=== PATIENT | female | born 1985 | race Hispanic/Latino ===

== ENCOUNTER 2017-07-23 08:57 | Day surgery (SDC) | payer BC, OTHER ==
[2017-07-21 18:33] VITALS: BMI 23.8
[2017-07-23 09:43] LABS: HEMATOCRIT 41.2 % (34.0-47.0); MEAN CELL VOLUME 87.8 fl (81.0-99.0); MEAN CORPUSCULAR HEMOGLOBIN 30.9 pg (27.0-31.0); MEAN CORPUSCULAR HGB CONC 35.2 g/dL (33.0-37.0); RED CELL DISTRIBUTION WIDTH 13.3 % (11.5-14.5); WHITE BLOOD COUNT 5.5 K/uL (4.8-10.8)
[2017-07-23] MEDS ORDERED: ePHEDrine 50 mg/ml Inj ONE (10:03)
[2017-07-23] MEDS ORDERED: Rocuronium 10 mg/ml (5 ml) ONE (10:03)
[2017-07-23] MEDS ORDERED: Propofol 10 mg/ml Inj (20 ML) ONE (10:03)
[2017-07-23] MEDS ORDERED: Lidocaine 4% (Laryng-O-Jet) Kit MM ONE (10:03)
[2017-07-23] MEDS ORDERED: Midazolam 2 MG/2 ML VIAL ONE (10:03)
[2017-07-23] MEDS ORDERED: Succinylcholine 200 mg/10 ml Inj IV ONE (10:03)
[2017-07-23] MEDS ORDERED: Bupivacaine 0.5% Inj(30mL) ONE (10:14)
[2017-07-23] MEDS ORDERED: ceFAZolin IV 1 gm in Dextrose 2 GM/100 ML BAG IVPB ONE (10:14)
[2017-07-23] MEDS ORDERED: Lactated Ringer's 1,000 ML IV ONE ×3 (10:35→14:30)
[2017-07-23] MEDS ORDERED: DiphenhydrAMINE 50 mg/ml Inj ONE (10:58)
[2017-07-23] MEDS ORDERED: Dexamethasone 4 mg/1 ml ONE (10:58)
[2017-07-23] MEDS ORDERED: Desflurane Inhalation Anesthetic Liq (240 ml) ONE (11:21)
[2017-07-23] MEDS ORDERED: Lactated Ringer's 1,000 ML IV SCH (12:45)
[2017-07-23] MEDS: HYDROmorphone 0.5 mg/0.5 ml ISec IVP PRN ×2 (13:05→13:50)
[2017-07-23] MEDS ORDERED: Oxycodone/Acetaminophen 5/325 mg Tab PO PRN (14:48)
[2017-07-23 15:13] VITALS: RESP 18
[2017-07-23] MEDS ORDERED: Oxycodone/Acetaminophen 5/325 mg Tab PO ONE (16:39)
[2017-07-23 17:32] VITALS: O2SAT 97
[2017-07-23 18:13] VITALS: BP 112/75; PULSE 84; TEMP 98
--- NOTE | 2017-08-03 10:21 | PCM.OP ---
Operative Report - Operative Report Date of Surgery/Procedure: 07/23/17 Time of Surgery/Procedure: 08:00 Surgeon: Dr. Mario Ladd Nurse Paralegal: Dr. Jay Karimi Anesthesia/Sedation: general/Dr. Jimenez Pre-Operative Diagnosis: endometriosis of the appednix Post-Operative Diagnosis: same Indication for Surgery: abdominal pain and endometriosis Operative Findings: as above Procedure/Operation Description: 1-Appendectomy. Brief History: This is a 32 year old woman who had already been brought to the operatong room by Dr. Sachi walters during the robotic proc edure noted endometriosis on the appnedix. Intraoperative general surgery consult was requested. Description of the Procedure: The patient had already been brought to the operating room by Dr. Felix (separate dictation). After taking control of the robot the appendix was retracted anteriorly and inferior and the mesentery was dissected with bliunt and sharp dissection. The appendiceal artery was dessicated and the appendix was freed to the base. With a double looped 3-0 PDS the appendix was ligated and then transected with electrocautrery. The specimen was marked and sent to pathology separately. Hemostasis was deemed adeqaute. The operatiojnn was then turned over to Dr. Karimi (separate dictation). Estimated Blood Loss: 5 cc Complications: none Discharge & Condition: stable
--- NOTE | 2017-08-04 18:04 | OP ---
PROCEDURE DATE: 07/23/2017 SURGEON: Jay Karimi MD VETERINARY PRACTITIONER: Mario Ladd MD ANESTHESIA ADMINISTERED BY: Annika Jimenez MD TYPE OF ANESTHESIA: General endotracheal anesthesia. PREOPERATIVE DIAGNOSES: Pelvic pain, dysmenorrhea, dyspareunia, bladder pain. POSTOPERATIVE DIAGNOSES: Pelvic pain, dysmenorrhea, dyspareunia, bladder pain, pelvic endometriosis of the pelvis and the appendix. PROCEDURES: Cystoscopy with bilateral ureteral catheterization and injection of dye; diagnostic hysteroscopy; dilatation and courettage, robotic laparoscopy, operative; excision of endometriosis; lysis of adhesions; bilateral ureterolysis and excision of rectal mass; to be dictated separately by Dr. Mario Ladd is appendectomy that he will dictate separately. ESTIMATED BLOOD LOSS: Minimal. COMPLICATIONS: None. SPECIMENS: Received is endometrial biopsy, appendix, colon, nodular endometriosis of left and right periureteral and posterior cervical endometriosis. INDICATION FOR THE PROCEDURE: This patient is a 32-year-old patient with an ongoing history of severe pelvic pain, who has had the surgery earlier this year confirming presence of endometriosis. The patient received no relief from the surgery and persisted with a severe pain. Further examination revealed presence of clinical signs of residual endometriosis. The patient was counseled with regard to risks and benefits of the surgery and with regard to the fact that the surgery may or may not solve her problem. She elected to proceed with the surgery and signed the consent. DESCRIPTION OF PROCEDURE: After adequate anesthesia was obtained, the patient was placed in dorsal lithotomy position. She was prepped and draped. The surgeons were gowned and gloved. At this point, attention was in the vaginal area where under direct visualization, a cystoscope was inserted into the bladder. A pancystoscopy was performed revealing evidence of no tumors, or areas of bleeding or any other lesion. The both ureteral ostia were in the appropriate anatomical position. Utilizing an open-ended stent, the left ureter was catheterized up to the distal ureter and 5 mL of IC-Green were then injected. Attention was then on the right ureter which was catheterized utilizing an open-ended stent all the way to the distal ureter and 5 mL of IC-Green were also injected. At this point, both stents were removed and ureteral openings appeared to be in normal condition. At this point, a Tamayo was replaced and attention was on the vaginal area where a speculum was placed in the vagina and the anterior lip of the cervix was grasped. The cervix was dilated and the hysteroscope was inserted into the uterine cavity. The cavity appeared to be normal. There was some area of erythema. For this reason and given the fact that the patient had been experiencing persistent bleeding, a D and C was performed. At this point, a uterine manipulator was placed in the uterus, attention was on the abdomen. After re-gowning and re-gloving, an open laparoscopy was performed in a standard fashion. Once the abdominal cavity was entered, the trocar cannula was inserted and under direct visualization, 3 additional trocars were inserted, right upper quadrant, left upper quadrant and left mid quadrant. The da Sammie Xi robot was then docked and the pelvis was visualized. The upper abdomen was visualized, appearing to have no evidence of implants on the peritoneal wall. The pelvis appeared to have multiple inflammatory areas. The back of the uterus appeared to be very inflamed with multiple implants. The appendix appeared to be abnormal. Dr. Mario Ladd was called in from General Surgery and performed an appendectomy that he will dictate separately. At this point, attention was first on the left pelvic side wall where a large area of endometriosis was identified. The peritoneum was lifted above the ureter and the retroperitoneal space was entered. A progressive dissection very careful of the ureter was performed and a full excision of pelvic side wall was performed. A large area of peritoneum containing endometriosis was then excised. Similarly in the posterior aspect of the uterus, an incision was made posteriorly in the cervix and peritoneum containing endometriosis was excised on the posterior aspect all the way to the anterior rectum in a circumferential fashion. On the right hand side, the ureter was identified in an additional area of endometriosis, but the uterosacral was then progressively excised lateralizing the ureter. At this point, energy was used to ablate a very large area of inflammatory lesions which were present throughout the pelvis and really mostly on the posterior aspect of the uterus which appeared to be extremely inflamed. After all these inflammatory lesions were removed, additional lesions were identified in the mesentery of the rectum. These were appeared to be white fibrotic implants suggestive either of endometriosis or flat granulomatous inflammatory lesions. These were excised and also sent to Pathology. At this point, we checked for hemostasis, it appeared to be excellent. The pelvis was irrigated. The robot was undocked. The abdomen was desufflated. All the instruments were removed and the incision were closed in layers utilizing 0 PDS for the fascia and 4-0 Monocryl for the skin. At the end of the procedure, all tapes and instruments counts were correct. The patient tolerated the procedure well and was taken to recovery room in excellent condition. Jay Karimi MD MTDD
== END 2017-07-23 18:43 | disposition home or self-care (01) ==
LOC: H.OPSURG 08:57
PROVIDERS: ATTEND Obstetrics & Gynecology Reproductive Endocrinology
DX: N80.0 Endometriosis of uterus (principal); I10 Essential (primary) hypertension; N94.6 Dysmenorrhea, unspecified; R10.2 Pelvic and perineal pain
CPT/HCPCS: 36415; 44955; 46610; 58662; 85027; 86850; 86900; 88305; C1729; J0330; J0690; J1100; J1170; J1200; J2001; J2250; J2405; J2704; J2765; J3010; J7030; J7040; J7120

== ENCOUNTER 2018-05-27 06:07 | Observation (INO) | payer BC ==
[2018-05-19 14:22] VITALS: BMI 24.9
[2018-05-27] MEDS ORDERED: ceFAZolin IV 1 gm in Dextrose 2 GM/100 ML BAG IVPB ONE (07:23)
[2018-05-27] MEDS ORDERED: Bupivacaine HCl 0.5% PF (30 ml) Inj ONE (07:23)
[2018-05-27 07:43] LABS: BASO # 0.1 K/uL (0.0-0.2); BASO % 1.2 % (0.0-2.0); EOS # 0.2 K/uL (0.0-0.7); EOS % 4.6 % (0.0-4.0); HEMOGLOBIN 12.7 g/dL (12.0-16.0); LYMPH # 1.2 K/uL (1.0-4.3); LYMPH % 27.2 % (20.0-40.0); MEAN CELL VOLUME 90.5 fl (81.0-99.0); MEAN CORPUSCULAR HEMOGLOBIN 31.4 pg (27.0-31.0); MEAN CORPUSCULAR HGB CONC 34.7 g/dL (33.0-37.0); MEAN PLATELET VOLUME 9.7 fl (7.2-11.7); MONO # 0.4 K/uL (0.0-0.8); MONO % 7.8 % (0.0-10.0); NEUT # 2.7 K/uL (1.8-7.0); NEUT % 59.2 % (50.0-75.0); RBC 4.03 Mil/uL (3.80-5.20); RED CELL DISTRIBUTION WIDTH 12.5 % (11.5-14.5); WHITE BLOOD COUNT 4.5 K/uL (4.8-10.8)
[2018-05-27] MEDS ORDERED: Midazolam 2 MG/2 ML VIAL ONE (08:00)
[2018-05-27] MEDS ORDERED: ePHEDrine 50 mg/ml Inj ONE (08:00)
[2018-05-27] MEDS ORDERED: Propofol 10 mg/ml Inj (20 ML) ONE (08:00)
[2018-05-27] MEDS ORDERED: Rocuronium 10 mg/ml (5 ml) ONE ×2 (08:00→09:04)
[2018-05-27] MEDS ORDERED: Succinylcholine 200 mg/10 ml Inj IV ONE (08:00)
[2018-05-27] MEDS ORDERED: Sodium Chloride 0.9% 10 ML IV ONE (08:04)
[2018-05-27] MEDS ORDERED: Neostigmine 1:1000 (1 mg/ml) Inj ONE (08:04)
[2018-05-27] MEDS ORDERED: Lactated Ringer's 1,000 ML IV ONE ×4 (08:25→13:30)
[2018-05-27] MEDS ORDERED: Dexamethasone 4 mg/1 ml ONE (09:03)
[2018-05-27] MEDS ORDERED: Morphine 1 mg/ml preservative-free Inj(Duramorph) ONE (09:19)
[2018-05-27] MEDS ORDERED: Sodium Chloride 0.9% 1,000 ML IV ONE (09:30)
[2018-05-27] MEDS ORDERED: Oxycodone/Acetaminophen 5/325 mg Tab PO PRN (10:53)
[2018-05-27] MEDS ORDERED: Naloxone 0.4 mg/ml Inj (Adult) IVP PRN (10:53)
[2018-05-27] MEDS ORDERED: DiphenhydrAMINE 50 mg/ml Inj IVP PRN (10:53)
[2018-05-27] MEDS ORDERED: Lactated Ringer's 1,000 ML IV SCH (11:00)
--- NOTE | 2018-05-27 11:02 | PCM.SURG1 ---
Surgeon's Initial Post Op Note - Surgeon's Notes Surgeon: Dr. Karimi Textile Screen Maker: Frederick Camara PGY2 Type of Anesthesia: General Endo, Local Anesthesia Administered By: Dr. May Pre-Operative Diagnosis: Adenomyosis, endometriosis Operative Findings: see operative report Post-Operative Diagnosis: Adenomyosis, endometriosis Operation Performed: Robotic total abdominal hysterectomy with bilateral salpingectomy Specimen/Specimens Removed: uterus, fallopian tubes bilaterally Estimated Blood Loss: EBL {In ML}: 15 Blood Products Given: N/A Drains Used: No Drains Post-Op Condition: Good Date of Surgery/Procedure: 05/27/18 Time of Surgery/Procedure: 11:02
[2018-05-27] MEDS: HYDROmorphone 0.5 mg/0.5 ml ISec IVP PRN ×3 (11:35→12:20)
[2018-05-28] MEDS ORDERED: Lactated Ringer's 1,000 ML IV SCH (06:15)
[2018-05-28 06:26] VITALS: RESP 16
[2018-05-28 06:55] LABS: BASO % 0.1 % (0.0-2.0); EOS # 0.3 K/uL (0.0-0.7); EOS % 3.8 % (0.0-4.0); HEMOGLOBIN 11.5 g/dL (12.0-16.0); LYMPH # 0.9 K/uL (1.0-4.3); LYMPH % 11.9 % (20.0-40.0); MEAN CELL VOLUME 90.4 fl (81.0-99.0); MEAN CORPUSCULAR HEMOGLOBIN 32.2 pg (27.0-31.0); MEAN CORPUSCULAR HGB CONC 35.7 g/dL (33.0-37.0); MEAN PLATELET VOLUME 9.8 fl (7.2-11.7); MONO # 0.5 K/uL (0.0-0.8); MONO % 6.1 % (0.0-10.0); NEUT # 5.9 K/uL (1.8-7.0); NEUT % 78.1 % (50.0-75.0); RBC 3.57 Mil/uL (3.80-5.20); RED CELL DISTRIBUTION WIDTH 12.2 % (11.5-14.5); WHITE BLOOD COUNT 7.6 K/uL (4.8-10.8)
[2018-05-28 07:11] LABS: BLOOD UREA NITROGEN 9 mg/dl (7-17); GFR NON-AFRICAN AMERICAN > 60
[2018-05-28 07:12] LABS: CALCIUM 8.2 mg/dL (8.4-10.2)
[2018-05-28] MEDS ORDERED: Potassium Chloride 20 mEq ER Tab PO ONE (07:26)
--- NOTE | 2018-05-28 07:29 | CP.PCM.DIS ---
Provider - Provider Date of Admission: 05/27/18 10:53 Attending physician: Jay Karimi Primary care physician: Jay Karimi Time Spent in preparation of Discharge (in minutes): 45 Diagnosis - Discharge Diagnosis (1) S/P hysterectomy Status: Acute Hospital Course - Lab Results Lab Results: Most Recent Lab Values WBC 7.6 K/uL (4.8-10.8) D 05/28/18 06:00 RBC 3.57 Mil/uL (3.80-5.20) L 05/28/18 06:00 Hgb 11.5 g/dL (12.0-16.0) L 05/28/18 06:00 Hct 32.2 % (34.0-47.0) L 05/28/18 06:00 MCV 90.4 fl (81.0-99.0) 05/28/18 06:00 MCH 32.2 pg (27.0-31.0) H 05/28/18 06:00 MCHC 35.7 g/dL (33.0-37.0) 05/28/18 06:00 RDW 12.2 % (11.5-14.5) 05/28/18 06:00 Plt Count 146 K/uL (130-400) 05/28/18 06:00 MPV 9.8 fl (7.2-11.7) 05/28/18 06:00 Neut % (Auto) 78.1 % (50.0-75.0) H 05/28/18 06:00 Lymph % (Auto) 11.9 % (20.0-40.0) L 05/28/18 06:00 Citrus % (Auto) 6.1 % (0.0-10.0) 05/28/18 06:00 Eos % (Auto) 3.8 % (0.0-4.0) 05/28/18 06:00 Baso % (Auto) 0.1 % (0.0-2.0) 05/28/18 06:00 Neut # (Auto) 5.9 K/uL (1.8-7.0) 05/28/18 06:00 Lymph # (Auto) 0.9 K/uL (1.0-4.3) L 05/28/18 06:00 Citrus # (Auto) 0.5 K/uL (0.0-0.8) 05/28/18 06:00 Eos # (Auto) 0.3 K/uL (0.0-0.7) 05/28/18 06:00 Baso # (Auto) 0.0 K/uL (0.0-0.2) 05/28/18 06:00 Sodium 136 mmol/l (132-148) 05/28/18 06:00 Potassium 3.2 MMOL/L (3.6-5.0) L 05/28/18 06:00 Chloride 103 mmol/L (98-107) 05/28/18 06:00 Carbon Dioxide 30 mmol/L (22-30) 05/28/18 06:00 Anion Gap 6 (10-20) L 05/28/18 06:00 BUN 9 mg/dl (7-17) 05/28/18 06:00 Creatinine 0.6 mg/dl (0.7-1.2) L 05/28/18 06:00 Est GFR ( Amer) > 60 05/28/18 06:00 Est GFR (Non-Af Amer) > 60 05/28/18 06:00 Random Glucose 91 mg/dL (65-105) 05/28/18 06:00 Calcium 8.2 mg/dL (8.4-10.2) L 05/28/18 06:00 Blood Type O POSITIVE 05/27/18 07:14 Antibody Screen Negative 05/27/18 07:14 BBK History Checked Patient has bt 05/27/18 07:14 - Hospital Course Hospital Course: 33 F presents for hysterectomy on 05/27. Patient had robotic hysterectomy with removal of bilateral fallopian tubes. Patient tolerated procedure well without complications. Post-operatively, hayes catheter remained in erted and started on CONTENT DIRECTOR for pain control. Patient was admitted for observation to pediatric floor. Overnight, patient produced adequate urine and did not have any acute adverse events. The night morning, hayes catheter was removed. Patient voided on her own. She also tolerated regular diet and was transitioned to oral pain medication. Patient was deemed medically stable for discharge by Dr. aKrimi. Patient was given usual discharge instructions. She was instructed to follow up as outpatient with Dr. Karimi as well. (This is a summary of the hospital course. Please refer to EMR for more information.) - Date & Time of H&P Date of H&P: 05/27/18 Time of H&P: 08:00 Discharge Exam - Head Exam Head Exam: ATRAUMATIC, NORMOCEPHALIC - Eye Exam Eye Exam: Normal appearance - ENT Exam ENT Exam: Mucous Membranes Moist - Respiratory Exam Respiratory Exam: NORMAL BREATHING PATTERN - Cardiovascular Exam Cardiovascular Exam: REGULAR RHYTHM - GI/Abdominal Exam GI & Abdominal Exam: Soft, Tenderness (at surgical sites). absent: Distended, Firm, Guarding, Rigid - Extremities Exam Extremities exam: normal capillary refill - Neurological Exam Neurological exam: Alert, Normal Gait, Oriented x3 - Psychiatric Exam Psychiatric exam: Normal Affect, Normal Mood - Skin Skin Exam: Dry, Intact, Warm Discharge Plan - Follow Up Plan Disposition: HOME/ ROUTINE Instructions: Robot-Assisted Hysterectomy Referrals: Jay Karimi [Primary Care Provider] -
--- NOTE | 2018-05-28 07:47 | OP ---
PROCEDURE DATE: 05/27/2018 SURGEON: Jay Karimi MD EXHIBIT ELECTRICIAN: 1. Mario Ladd MD 2Saira Mack PGY2 ANESTHESIOLOGIST: Gianna Spain MD ANESTHETIC: General Endo PREOPERATIVE DIAGNOSES: Adenomyosis, endometriosis POSTOPERATIVE DIAGNOSES: Adenomyosis, endometriosis OPERATION PERFORMED: Robotic total abdominal hysterectomy with bilateral salpingectomy Dr. Ladd from General Surgery was consulted to perform 1-Extensive lysis of adhesions (sigmoid colon and rectum) procedure and he will dictate that separately. Specimen/Specimens Removed: uterus, fallopian tubes bilaterally COMPLICATIONS: None. Estimated Blood Loss: EBL {In ML}: 15 Blood Products Given: N/A Drains Used: No Drains Post-Op Condition: Good Genitalia: normal, external genitalia, cervix normal without lesions or polyps. Hysteroscopy showed evidence of a small septum of the fundus of the uterus and no other lesions visualized. Cystoscopy was performed to rule out endometriosis of bladder mucosa and also interstitial cystitis, also injury. The bladder was normal with no evidence of stone, trigonitis or cystitis. Positive jet flow visualized in both ureters. Laparoscopy was normal, gallbladder was normal, liver edges appeared to be normal. Ascending colon and transverse were normal. The appendix appeared to be abnormal with both fibrosis and thickening. There was evidence of severe adhesions, fibrosis and endometriosis of the rectovaginal septum and attachment of the bowel to the posterior aspect of the uterus and to both the right and left adnexa. Both ovaries were severely attached to the posterior aspect of the ureters with endometriosis and adhesions. Fallopian tubes appeared to have some inflammatory changes of adhesions, but overall appeared to be normal. Both ovaries appeared to be involved with scar. There was also evidence of endometriosis of the rectovaginal septum in right and left perirectal areas and cirrhosis of both ureters, posterior cul_de_sac and anterior cul_de_sac. 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 There was also evidence of mild bilateral hydroureters. CONSENT: The patient had been thoroughly evaluated and counseled regarding pros and cons of the procedure, the reasonable alternative, and the possible complications. She understood and accepted the risks involved. Appropriate literature was provided to the patient. The patient was in understanding that given her history and presurgical exam, she knows that she was a high risk and average patient. She accepted all the risks involved and all the questions had been answered to her satisfaction. DESCRIPTION OF PROCEDURE: Initiation of the case: After adequate anesthesia was obtained, the patient was placed in the dorsal lithotomy position with extreme care of placement of the patient without hyperextension or hyperflexing the hips. At this point, the patient was prepped and draped, the surgeon was gowned and gloved. A time-out was taken according to the hospital procedure and the procedure was started. At this point, we performed the cystoscopy and bilateral ureteral catheterization. At this point we performed cystoscopy: A cystoscope was inserted into the bladder, under direct visualization and the bladder was visualized. The bladder was free of lesions, tumors. There was no evidence of interstitial cystitis, and there was only a mild amount of trigonitis. At this point, both ureters were identified and appeared to be in normal anatomical position. At this point, utilizing an open-ended 5-Pakistani catheter, the left ureter was catheterized all the way to the distal ureter, and a 5 mL of IC-Green were injected into the distal ureter. Similarly, on the contralateral ureter, the ureter was catheterized all the way to the distal ureter, and a 5 mL of IC-Green were injected into the distal ureter. At this point, the stents were removed, and the hysteroscope was removed and a 16-Pakistani Tamayo was placed into the bladder. At this point, we proceeded with a hysteroscopy: A speculum was placed in the vagina, and the anterior lip of the cervix was grasped. The cervix was dilated and a hysteroscope was inserted into the cavity. The cavity appeared to be of normal size, but there was evidence of a subseptum at the top of the uterus. At this point, we proceeded with excision of uterine septum. Once the septum was identified, the endoscopic scissors were inserted into the uterine cavity and a progressive dissection of the septum was performed with great care not to perforate the uterus and not to cause any bleeding. The procedure was basically bloodless and the septum was excised. At this point, we proceeded with placement of trocars and docking of the Da Sammie Xi robot The surgeons were re-gowned and re-gloved, and an open laparoscopy was performed by making an incision below the umbilicus, and the fascia was incised, and the peritoneum was entered in the blunt fashion. The cannula was inserted and the abdomen was insufflated, and under direct visualization 3 additional ports were inserted, left upper quadrant, left mid quadrant and right upper quadrant. At this point, the da Sammie Xi robot was brought into the field and docked, and the instruments were inserted under direct visualization. With extreme care not to injure the bowel or any other area. As per the dictation, the upper abdomen appeared to be normal with no evidence of any lesions. The pelvis had the findings described above, which included significant adhesions, fibrosis of the posterior cul-de-sac, significant endometriosis with deep endometriosis nodules. Both ovary adherent to both the ovarian fossas and the posterior aspect of the uterus with significant inflammatory changes. At this point, we proceeded with the left ureterolysis. The ureter appeared to dilated and it was clearly identified utilizing fluorescent technology. An incision was made on the peritoneum at the top of the pelvic brim, and incision was then carried down all the way opening the peritoneum and all the way down from the pelvic brim all the way down to the ovarian fossa extending the incision below the ovary. It was a progressive dissection where the ureter was progressively lateralized and the peritoneum medialized, thus freeing the ureter all the way down to the crossing of the uterine vessels. After this was done and the ureter was freed and lateralized and a large area of peritoneum, which had been opened up was excised and sent to pathology. At this point, after ureter had been identified, we were able to elevate the ovary and dissect it from the pelvic side wall in the ovarian fossa At this point, we proceeded with the left ovariolysis. The ovary was gently dissected and elevated off the ovarian fossa and area of fibrosis of endometriosis were exposed. At this point, we proceeded with the right ureterolysis. The ureter was identified and again utilizing florescent technology, the retroperitoneal space was entered and a full dissection was performed entering the retroperitoneal space and dissecting the ureter, removing the ureter laterally and the peritoneum medially. A full dissection was performed all the way down to the ovarian fossa, on the crossing of the uterine arteries. A large area of peritoneum containing endometriosis was also dissected and sent to Pathology. At this point, we proceeded with a right ovariolysis. The ovary was progressively elevated, areas of deep endometriosis and superficial endometriosis were dissected out and the ovary was finally elevated. At this point, we proceeded with a treatment of endometriosis and excision of endometriosis. On the left hand side, a large area of peritoneum, where containing endometriosis was excised in the ovarian fossa with the upper margin of the excision at the utero_ovarian ligament all the way down to the uterosacral ligament. Large areas of fibrosis were identified in posterior cul-de-sac and the rectovaginal space was affected with endometriosis and severe fibrosis. The rectovaginal area was then dissected and the space was opened, and we were able to dissect the rectum away from the posterior aspect of the cervix. Additional areas of endometriosis were dissected from the posterior aspect of the Uterus. At this point, we proceeded with excision of the endometriosis on the right hand side where similarly in a full excision of endometriosis was performed by performing incision from starting at the right utero_ovarian ligament all the way down to the right uterosacral ligament. At this point, Dr. Ladd from General Surgery was called in and he performed procedure, which she will dictate separately. At this point, it was checked for hemostasis and appeared to be excellent. All the endometriosis had been excised. At this point, we performed the ablation of inflamed peritoneum, utilizing the J_plasma device. There were inflammatory areas in the posterior aspect of the uterus, which were not endometriotic, but they were purely inflammatory and these were not excisable, as they were not endometriotic. Therefore, we proceeded with ablation of such area utilizing the J plasma. Once this was done, it was checked for hemostasis and appeared to be excellent. The consult was handed to Dr. Ladd, who performed the and he will dictate that separately. After this was done, it was checked for hemostasis and appeared to be excellent. The pelvis was irrigated. The da Sammie Xi robot was removed. The abdomen desufflated. The instruments were removed. The incisions were closed in layers with 0 PDS for the fascia and 4-0 Monocryl for the skin. The patient was awakened up and taken to recovery room in excellent condition. Jay Karimi MD [facility] HEALTHBrandon
[2018-05-28 09:43] VITALS: BP 121/78; PULSE 68; TEMP 98; O2SAT 100
--- NOTE | 2018-06-02 11:42 | PCM.OP ---
Operative Report - Operative Report Date of Surgery/Procedure: 05/27/18 Time of Surgery/Procedure: 09:00 Surgeon: Dr. Mario Ladd Control Officer: Dr. Jay Karimi Anesthesia/Sedation: general/Dr. Wells Pre-Operative Diagnosis: abdominal pain and endometriosis Post-Operative Diagnosis: as above with significant adhesions to the large bowel sigmoid and rectum Indication for Surgery: as above Operative Findings: as above Procedure/Operation Description: 1-Extensive lysis of adhesions (sigmoid colon and rectum). Brief History: This 33 year old woman was brought to the operating room by Dr. Karimi when he ahd encountered enxtensive intestinal adhesions and he requesrted an intraoperative general surgery consultation. Descriotion of the Procedure: The patinet had already been brought to the operating room by Dr. Karimi when he encountered extensive intestianl adhesion whihc were obscuring the pelvis (separate dictation Dr. Karimi). After taking control fo the robotic console the first set of adhesions invovled the sigmoid colon at the level of the left ureter. These were lysed with blunt and sharp dissection wtih the aid of electrocauery to the level of the pelvis and uterus. Once completed the operation was turned over to Dr. Karimi (separate dictstion). Estimated Blood Loss: 5 cc Complications: none Discharge & Condition: stable
== END 2018-05-28 13:15 | disposition home or self-care (01) ==
LOC: H.OPSURG 06:07 → H.PEDS 10:53
PROVIDERS: ADMIT Obstetrics & Gynecology Reproductive Endocrinology; ATTEND Obstetrics & Gynecology Reproductive Endocrinology
DX: N80.0 Endometriosis of uterus (principal); N80.3 Endometriosis of pelvic peritoneum; N80.4 Endometriosis of rectovaginal septum and vagina; N13.5 Crossing vessel and stricture of ureter without hydronephrosis; N80.5 Endometriosis of intestine; N80.1 Endometriosis of ovary; Q51.2 Other doubling of uterus; N80.8 Other endometriosis; K66.0 Peritoneal adhesions (postprocedural) (postinfection)
CPT/HCPCS: 36415; 49203; 58150; 58560; 58999; 80048; 85025; 86850; 86900; 88305; 88307; 94770; C1729; G0378; J0330; J0690; J1100; J1170; J1200; J1885; J2001; J2175; J2250; J2270; J2405; J2704; J2710; J3010; J7030; J7120